=== PATIENT | female | born 1975 ===

== ENCOUNTER 2020-06-07 09:15 | Inpatient (IN) | payer OTHER ==
[~2020-06-07] VITALS: Ht 167.6 cm; Wt 69.4 kg
[2020-06-07] MEDS ORDERED: PREVACID30 MG PO (12:33)
[2020-06-14] MEDS ORDERED: CETIRIZINE HCL10 MG PO (13:11)
[2020-06-15] MEDS ORDERED: Tylenol #3 PO (08:54)
== END 2020-06-15 09:57 | disposition home or self-care (01) | DRG 743 ==
LOC: O/R 06-14 09:14 → OB/GYN 06-14 09:14
PROVIDERS: ADMIT Obstetrics & Gynecology; ATTEND Obstetrics & Gynecology
PROC: 0UQF7ZZ Repair Cul-de-sac, Via Natural or Artificial Opening (ICD-10-PCS; 2020-06-14)
PROC: 0USG7ZZ Reposition Vagina, Via Natural or Artificial Opening (ICD-10-PCS; 2020-06-14)
PROC: 0TJB8ZZ Inspection of Bladder, Via Natural or Artificial Opening Endoscopic (ICD-10-PCS; 2020-06-14)
PROC: 0UT97ZZ Resection of Uterus, Via Natural or Artificial Opening (ICD-10-PCS; principal; 2020-06-14 14:30)
DX: D25.1 Intramural leiomyoma of uterus (principal); N72 Inflammatory disease of cervix uteri; D64.9 Anemia, unspecified; N81.11 Cystocele, midline; N81.5 Vaginal enterocele